=== PATIENT | female | born 1965 | race Caucasian/White ===

== ENCOUNTER → 2018-03-24 | Outpatient (CLI) | payer OTHER | END | disposition home or self-care (01) | LOC: NUC 09:11 | DX: T84.038A Mechanical loosening of other internal prosthetic joint, initial encounter (principal); R93.7 Abnormal findings on diagnostic imaging of other parts of musculoskeletal system; Z96.611 Presence of right artificial shoulder joint; M19.011 Primary osteoarthritis, right shoulder | CPT/HCPCS: 78315; A9503 ==